=== PATIENT | female | born 1970 | race Two or more races ===

== ENCOUNTER 2022-05-06 10:25 | Inpatient (IN) | payer OTHER ==
[~2022-05-06] VITALS: Ht 157.5 cm; Wt 73.0 kg
[2022-05-06] MEDS ORDERED: INTESTINEX680 M1 PO (13:45)
[2022-05-06] MEDS ORDERED: PROTONIX40 MG PO (13:45)
[2022-05-06] MEDS ORDERED: LEVO-T100 MCG PO (13:45)
[2022-05-06] MEDS ORDERED: ARTHRITIS PAIN650 MG PO (13:45)
[2022-05-06] MEDS ORDERED: GAS-X125 MG PO (13:46)
[2022-05-06] MEDS ORDERED: MOTRIN IB200 M1 PO (13:46)
[2022-05-06] MEDS ORDERED: KRISTALOSE10 GM PO (13:46)
[2022-05-11] MEDS ORDERED: OMEPRAZOLE40 MG (10:58)
[2022-05-15] MEDS ORDERED: COLACE100 MG PO (12:39)
[2022-05-15] MEDS ORDERED: PERCOCET 5-3251 EACH PO (12:39)
[2022-05-15] MEDS ORDERED: PRILOSEC OTC20 MG PO (12:49)
[2022-05-15] MEDS ORDERED: INTEGRA F CAPS1 EACH PO (12:49)
== END 2022-05-15 15:07 | disposition home or self-care (01) | DRG 329 ==
LOC: O/R 05-11 06:20 → SURH 05-11 06:20
PROVIDERS: ADMIT Surgery; ATTEND Surgery
PROC: 0DBP4ZZ Excision of Rectum, Percutaneous Endoscopic Approach (ICD-10-PCS; 2022-05-11)
PROC: 0DB84ZZ Excision of Small Intestine, Percutaneous Endoscopic Approach (ICD-10-PCS; 2022-05-11)
PROC: 0DTN4ZZ Resection of Sigmoid Colon, Percutaneous Endoscopic Approach (ICD-10-PCS; principal; 2022-05-11 10:15)
DX: K57.20 Diverticulitis of large intestine with perforation and abscess without bleeding (principal); K65.1 Peritoneal abscess; K65.8 Other peritonitis; K63.2 Fistula of intestine; R10.32 Left lower quadrant pain; Z20.822 Contact with and (suspected) exposure to COVID-19

== ENCOUNTER 2024-12-11 06:56 | Day surgery (SDC) | payer OTHER ==
[~2024-12-11 06:56] MED LIST: ARTHRITIS PAIN650 MG PO; COLACE100 MG PO; GAS-X125 MG PO; INTEGRA F CAPS1 EACH PO; INTESTINEX680 M1 PO; KRISTALOSE10 GM PO; LEVO-T100 MCG PO; MOTRIN IB200 M1 PO; OMEPRAZOLE40 MG; PERCOCET 5-3251 EACH PO; PRILOSEC OTC20 MG PO; PROTONIX40 MG PO
[2024-12-11] MEDS ORDERED: fentaNYL CITRATE 50 MCG/ML AMPUL IV PUSH ONE (13:45)
[2024-12-11] MEDS ORDERED: MIDAZOLAM HCL 2 MG/2 ML VIAL IV ONE (13:45)
[2024-12-11] MEDS ORDERED: DIPHENHYDRAMINE HCL 50 MG/ML VIAL 1ML IV ONE (13:45)
== END 2024-12-11 15:15 | disposition home or self-care (01) ==
LOC: AMB-ENDOS 06:56 → CIR.AMB 13:00 → AMB-ENDOS 15:15
PROVIDERS: ATTEND Surgery
DX: K57.30 Diverticulosis of large intestine without perforation or abscess without bleeding (principal); K65.1 Peritoneal abscess; K55.1 Chronic vascular disorders of intestine; R10.32 Left lower quadrant pain